=== PATIENT | male | born 1995 | race Hispanic/Latino ===

== ENCOUNTER 2019-11-20 13:11 | Emergency (ER) | payer BC, OTHER ==
[2019-11-20] MEDS ORDERED: Adacel (T-DAP) 0.5 ML SYRINGE ONE (13:26)
[2019-11-20] MEDS ORDERED: Bacitracin 1 PK ONE (13:44)
[2019-11-20 14:24] LABS: HIV (1/2) Antibody/Antigen Non-Reactive (NonReactive); HIV 1/2 INDEX 0.22 S/CO (<1.00); Hep C IgG Ab Non-Reactive (NonReactive); Hep C Index 0.09 S/CO (0-0.79)
[2019-11-20 14:27] LABS: HBSAB Concentration 507.86 mIU/mL; Hep B Surf AB Reactive (NonReactive)
== END 2019-11-20 14:00 | disposition home or self-care (01) ==
LOC: ERS 13:11
DX: S61.231A Puncture wound without foreign body of left index finger without damage to nail, initial encounter (principal); W26.8XXA Contact with other sharp object(s), not elsewhere classified, initial encounter
CPT/HCPCS: 86706; 86803; 87389; 90471; 90715; 99283

== ENCOUNTER 2022-10-30 12:25 | Outpatient (CLI) | payer BC | END 2022-10-30 12:26 | disposition home or self-care (01) | LOC: RAD 12:25 | PROVIDERS: ATTEND Family Medicine | DX: R06.3 Periodic breathing (principal) | CPT/HCPCS: 71046 ==